=== PATIENT | female | born 1970 | race Caucasian/White ===

== ENCOUNTER → 2019-09-19 | Day surgery (SDC) | payer OTHER ==
[~2019-09-19] MED LIST: IV RINGERS,LACTATED 1000ML 1,000 ML IV SCH; LIDOCAINE 2% PF 5 ML VIAL. ONE; PROPOFOL 40 ML IV ONE; VENL37.56 PO; ZOLP5TAB PO
--- NOTE | 2019-09-19 09:54 | PREOP HP ---
DATE OF SERVICE: DATE OF PROCEDURE: 09/19/2019 REQUESTING PHYSICIAN: Dr. Tonja Cheung. REASON FOR PROCEDURE: Colorectal cancer screening. HISTORY OF PRESENT ILLNESS: This is a 49-year-old female who presents today for colorectal cancer screening. She also complains of gastritis today and requests a prescription for pantoprazole. ALLERGIES: FLUOXETINE. PAST MEDICAL HISTORY: Anxiety, chronic gastritis. FAMILY MEDICAL HISTORY: Colon polyps in her brother. SOCIAL HISTORY: No tobacco, alcohol or IV drug abuse. MEDICATIONS: MAR reviewed. REVIEW OF SYSTEMS: A 13-point review of systems was done and is positive as per HPI and otherwise negative. PHYSICAL EXAMINATION: VITAL SIGNS: She is afebrile and her vital signs are stable. GENERAL: She is a well-developed, well-nourished female, in no apparent distress. HEENT: Oropharynx is clear. CARDIOVASCULAR: S1, S2. LUNGS: Clear. ABDOMEN: Normoactive bowel sounds, soft, nontender, nondistended. EXTREMITIES: No edema. NEUROLOGIC: Awake, alert, oriented x 3. ASSESSMENT AND PLAN: 1. Heartburn. Script for pantoprazole given per patient's request. 2. Colorectal cancer screening. The risks and benefits of the procedure including bleeding, perforation, non-diagnosis and sedation have been explained and she has agreed to proceed. Thank you for allowing me to participate in the care of this patient. MADELIN CAO MD DR: LOUIE/chandra JOB#: [id number] / [id number]
[2019-09-19 10:08] VITALS: BP 131/79
== END ==
LOC: ENDOS 08:02
PROVIDERS: ATTEND Internal Medicine Gastroenterology
DX: Z12.11 Encounter for screening for malignant neoplasm of colon (principal); K64.0 First degree hemorrhoids; K63.89 Other specified diseases of intestine; F41.9 Anxiety disorder, unspecified; K29.50 Unspecified chronic gastritis without bleeding; Z83.71 Family history of colonic polyps
CPT/HCPCS: 45378; 81025; J2001; J2704